=== PATIENT | female | born 1945 | race Caucasian/White ===

== ENCOUNTER 2024-07-05 08:04 | Day surgery (SDC) | payer OTHER, SELFPAY ==
[2024-06-20 13:01] VITALS: BMI 40.8
[2024-06-20 13:28] LABS: % Basophils 0.5 % (0-2); % Eosinophils 1.3 % (0-6); % Immature Granulocytes 0.2 % (0-0.5); % Lymphocytes 32.7 % (20.5-51.1); % Monocytes 6.3 % (1.7-9.3); Absolute Eosinophils 0.1 10^3/uL (0-0.7); Absolute Lymphocytes 2.8 10^3/uL (1.2-3.4); Absolute Monocytes 0.5 10^3/uL (0.1-0.6); Hematocrit 42.7 % (37.0-47.0); Hemoglobin 14.1 g/dL (12.0-16.0); Mean Corpuscular Hgb 29.4 pg (27.0-31.0); Mean Platelet Volume 8.6 fL (7.4-10.4); Nucleated Red Blood Cells % 0 %; Platelet Count 333 10^3/uL (130-400); Red Cell Dist. Width 14.5 % (11.5-14.5); White Blood Cell Count 8.4 10^3/uL (4.8-10.8)
[2024-06-20 13:45] LABS: INR 1.15; PT 14.7 Sec (11.4-14.6)
[2024-06-20 13:49] LABS: ALT (SGPT) 24 U/L (0-35); AST (SGOT) 28 U/L (14-36); Albumin 4.2 g/dl (3.5-5.0); Alkaline Phosphatase 93 U/L (38-126); Blood Urea Nitrogen 18 mg/dl (7-17); Calcium 9.7 mg/dl (8.4-10.2); Carbon Dioxide 28 mmol/L (22-30); Chloride 102 mmol/L (98-107); Estimated Creatinine Clearance 67 ml/min; Glucose 99 mg/dl (70-99); Magnesium 2.1 mg/dl (1.6-2.3); Potassium 4.3 mmol/L (3.5-5.1); Sodium 141 mmol/L (135-145); Total Protein 7.2 g/dl (6.3-8.2); eGFR > 60.00
--- NOTE | 2024-06-23 18:47 | W.PN.UPDATE ---
Update Note
Progress Note Update
5mm pulmonary nodule--faxed to PCP
[2024-07-05] VITALS (15 sets, daily range): BP systolic 111–148; BP diastolic 56–83
[2024-07-05 11:38] LABS: ACT-LR - POC 252 Seconds (116-155)
[2024-07-05 11:57] LABS: ACT-LR - POC 260 Seconds (116-155)
--- NOTE | 2024-07-05 13:16 | ITS.CL.ABL ---
Financial Quantitative Analyst - Ablation
Ablation
Procedure Report:
ELECTROPHYSIOLOGY ABLATION STUDY
�
DATE:: July 05, 2024�����������������������������REFERRING: Dr. Mike Delgado
�
INDICATION: Paroxysmal supraventricular tachycardia in the form of atrial fibrillation.��As above
�
HISTORY: See H and P.� As above
�
ANTIARRHYTHMIC DRUG: Patient opted for pulmonary vein isolation of a class I class III antiarrhythmic drug therapy
�
PRE-PROCEDURE FAITH: No atrial thrombus
�
PRESENTING RHYTHM: Sinus bradycardia
�
'TIME-OUT':��called and confirmed.
�
SEDATION/ANESTHESIA:��provided via the anesthesia department using general anesthesia (LMA).
�
INTRAVENOUS/ARTERIAL ACCESS:
Right femoral venous -8 Maldivian upgraded to a 16 Maldivian short sheath through which the 10 Maldivian steerable sheath was used for transseptal and upgraded to the 14 Maldivian outer transseptal sheath
Left femoral venous - 8 Fr, 6 Fr
Left femoral arterial - 5 Fr
Ultrasound guidance for bilateral femoral vein access was utilized by me to obtain access with demonstration of normal anatomy
CHADS-VASC Score:
[id number] suture to each of the femoral venous access sites
HAS-Bled Score
�
PROCEDURE:
1.��A decapolar CS catheter was placed within the CS for mapping and pacing.��This was also used as the reference catheter for the 3-D map.
�
2. The intracardiac ultrasound catheter was positioned in the RA to identify the FO for targeting of transseptal puncture, assist��in identification of the pulmonary vein ostia, monitoring pre and post ablation pulmonary vein flow velocities,
monitoring for 'bubble' formation during RF application as a sign of thermal injury,��and to monitor for pericardial effusion during mapping and ablation procedure.���Left atrial size, LV ejection fraction, and pulmonary vein flows were monitored
pre and post ablation procedure. The other valves were inspected and found to be free of significant regurgitation or stenosis.
�
3.��Half of the calculated heparin bolus was administered prior to the first transeptal puncture.��Transseptal puncture was performed to diagnose RA and LA pressure so that safetey of LA mapping and ablation could be further assessed, and to access
the left atrium and pulmonary veins for mapping and ablation.��The 14 Maldivian sheath and dilator apparatus with needle was advanced to the fossa and crossed in the left atrium but the interatrial septum was extremely stretched she and the dilator and
sheath apparatus needed to be brought almost to the cardiac silhouette to bring dilator and sheath across into the left atrium. The 14 Maldivian sheath was brought into the left atrium over a ProTrac wire for safety given the aneurysmal interatrial
septum. Right atrial pressure of 6 left atrial pressure of 10 m of mercury.
�
4.��RA pacing was performed via the proximal decapolar poles and LA pacing was performed via the distal decapolar poles.
�
5. A quadrapolar catheter was first positioned at the His position for His Bundle recording which was tagged via the 3-D Navex sytem, and then passed to the RVA for RV pacing and recording.
�
6. The multipolar catheter and the PFA catheter were placed in each of the LIPV, LSPV, RSPV and the RIPV.��
�
7.��Next, a 3-D map was created using Navex.���A 3-D reconstructed CT image was compared to the 3-D Navex map to assist in anatomic interpretation, mapping and ablation.��The CT image and the NavX image were fused.
�
8. 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
EP study after ablation did not demonstrate any other nonpulmonary vein triggers for atrial fibrillation.
9. Normal sinus node noted. Basic cycle length of 900 ms noted.
�
�
TOTAL FLOURO TIME: 14.7 minutes 143 mGy
�
TOTAL RF DURATION: 0 minutes
�
REVERSAL OF HEPARIN: 35 mg of protamine, slow IV administration
�
COMPLICATIONS:
None
Intracardiac US shows no pericardial effusion post ablation.
�
SUMMARY:��
Complex left atrial mapping and ablation.
Isolation of all 4 pulmonary veins and left atrial posterior wall as above.
�
RECOMMENDATIONS:
1. Ambulate in 4 hours
2. Resume anticoagulation
3.��Consider same-day discharge
4.��Duration of oral anticoagulation minimum 3 months post procedure
�
Copy to: Dr. Mike Delgado
�
[2024-07-05] MEDS: ANESTHETIC LOZENGE 1 LOZENGE PO (14:02)
--- NOTE | 2024-07-05 15:55 | W.PN.UPDATE ---
Update Note
Progress Note Update
79 yo [place] female s/p PVI (Same day). She denies cp, sob, jess diet, voiding, EKG SR/SB, b/l groins c/d/i. She will continue OAC Eliquis. Activity restrictions reviewed. She will f/u Dr. Delgado 07.11. She is for d/c home after 530p if groins
stable.
SUMMARY:��
Complex left atrial mapping and ablation.
Isolation of all 4 pulmonary veins and left atrial posterior wall as above.
�
== END 2024-07-05 17:57 | disposition home or self-care (01) ==
LOC: CATH 08:04
PROVIDERS: ATTENDING PHYSICIAN Internal Medicine Cardiovascular Disease; FAMILY PHYSICIAN Internal Medicine; OTHER PHYSICIAN Internal Medicine Cardiovascular Disease
DX: I48.0 Paroxysmal atrial fibrillation (principal); I47.19 Other supraventricular tachycardia; R00.2 Palpitations; R53.83 Other fatigue; I10 Essential (primary) hypertension; E78.5 Hyperlipidemia, unspecified; E03.9 Hypothyroidism, unspecified; E66.01 Morbid (severe) obesity due to excess calories; Z68.41 Body mass index [BMI] 40.0-44.9, adult; Z85.820 Personal history of malignant melanoma of skin; Z79.01 Long term (current) use of anticoagulants
CPT/HCPCS: C1732; C1894; C1730; C1733; C1769; C1766; C1892; C1759; 36415; 75572; 80053; 83735; 85025; 85347; 85610; 86850; 86900; 86901; 93005; 93656; Q9967